=== PATIENT | female | born 1945 | race Caucasian/White ===

== ENCOUNTER 2020-01-21 14:09 | Outpatient (CLI) | payer MEDICARE, BC ==
--- NOTE | 2020-01-21 14:37 | RAD ---
THORACIC SPINE SERIES 3 VIEWS: Date: 01/21/2020 HISTORY: Follow-up of fracture. COMPARISON: A 12/30/2016 chest x-ray, which are the only images I have available for comparison. FINDINGS: The bones are demineralized. There are compression changes involving the inferior end plate of T9, ag e-indeterminate. Also, superior end plate compression changes of L1. Pedicles appear intact. IMPRESSION: Some mild compression changes of the inferior end plate of T9 and also superior end plate compression fracture of L1. POS: [facility]
--- NOTE | 2020-01-21 14:44 | RAD ---
LUMBAR SPINE SERIES 2 VIEWS: Date: 01/21/2020 HISTORY: Follow-up compression fracture. COMPARISON: None available. FINDINGS: Bilateral pedicle screws are noted at L4-5 with moderate spondylolisthesis at this level of approxima tely 14-15 mm. Superior end plate compression changes of L1 are noted. No significant bony retropulsi on. Atherosclerotic changes are seen with suggestion of some aneurysmal dilatation to the infrarenal aort a. Measurement of 3.9 cm is obtained on the lateral view. This is probably less than this as this wou ld be a magnified view. IMPRESSION: 1. Compression changes of the superior end plate of L1 and postop changes at L4-5. 2. 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 Ultrasound would be recomm ended for better assessment of size. POS: [facility]
== END 2020-01-21 14:10 | disposition home or self-care (01) ==
LOC: TBSIIMAG 14:09
PROVIDERS: ATTEND Surgery
DX: M48.56XA Collapsed vertebra, not elsewhere classified, lumbar region, initial encounter for fracture (principal); M54.6 Pain in thoracic spine; Z98.890 Other specified postprocedural states
CPT/HCPCS: 72072; 72100